=== PATIENT | female | born 1985 | race Caucasian/White ===

== ENCOUNTER → 2018-11-13 10:03 | Outpatient (CLI) | payer OTHER, SELFPAY | LOC: LABSPEC 10:11 | PROVIDERS: Family Provider Family Medicine; PCP Family Medicine; Referring Provider Dermatology; Visit Provider Dermatology | DX: L73.2 Hidradenitis suppurativa (principal); Z09 Encounter for follow-up examination after completed treatment for conditions other than malignant neoplasm; Z86.14 Personal history of Methicillin resistant Staphylococcus aureus infection | CPT/HCPCS: 87070; 87077; 87186; 87205 ==